=== PATIENT | male | born 1950 ===

== ENCOUNTER 2023-05-07 10:30 | Inpatient (IN) | payer OTHER ==
[2023-05-14] MEDS ORDERED: NORVASC10 MG (11:12)
[2023-05-14] MEDS ORDERED: ZESTRIL10 M1 (11:12)
[2023-05-14] MEDS ORDERED: NEURONTIN300 MG (11:13)
[2023-05-14] MEDS ORDERED: PEPCID 40MG (11:13)
[2023-05-14] MEDS ORDERED: LIPITOR (11:14)
[2023-05-14] MEDS ORDERED: HYDROCHLOROTHIAZIDE 10 MG (11:14)
[2023-05-14] MEDS ORDERED: SILDENAFIL CITR50 MG (11:15)
[2023-05-14] MEDS ORDERED: ALLERGY RELIE15.8 ML (11:15)
[2023-05-14] MEDS ORDERED: BIOTIN1000 MCG PO (11:15)
[2023-05-14] MEDS ORDERED: AZELASTINE137 MCG/0. (11:16)
[2023-05-14 14:21] LABS: INR 0.97; PARTIAL THROMBOPLASTIN TIME 28.4 SECONDS (22.0-34.0); PROTHROMBIN TIME 10.2 SECONDS (9.0-11.5)
[2023-05-22] MEDS ORDERED: ENOXAPARIN SODIUM 40 MG/0.4 ML SYRINGE SUBCUTANEO ONE ×2 (11:09→14:45)
[2023-05-22] MEDS ORDERED: CEFAZOLIN SODIUM 1,000 MG VIAL ONE (11:09)
[2023-05-22] MEDS ORDERED: CEFAZOLIN SODIUM 1,000 MG in 0.9 % SODIUM CHLORIDE 50 ML IV ONE (14:45)
[2023-05-22] MEDS ORDERED: SURGIFLO APPLICATOR 1 EACH APPL TOP ONE (17:29)
[2023-05-22] MEDS ORDERED: HEMOSTATIC MATRIX 1 KIT KIT TOP ONE ×2 (17:29→17:45)
[2023-05-22] MEDS ORDERED: SUGAMMADEX SODIUM 200 MG/2 ML VIAL IV ONE ×2 (21:06→21:15)
[2023-05-22] MEDS ORDERED: ONDANSETRON HCL 2 MG/ML VIAL IV PRN (21:30)
[2023-05-22] MEDS ORDERED: OxyCODONE HCL/APAP UD (PERCOCET) PO PRN (21:30)
[2023-05-22] MEDS ORDERED: RINGERS SOLUTION,LACTATED 1,000 ML IV SCH (21:30)
[2023-05-23] MEDS ORDERED: KETOROLAC TROMETHAMINE 30 MG VIAL IM SCH
[2023-05-23] MEDS ORDERED: GABAPENTIN 300 MG CAPSULE PO SCH (01:00)
[2023-05-23 07:22] LABS: HEMATOCRIT 37.5 % (39.0-48.0); HEMOGLOBIN 12.4 g/dL (13-16.00); MEAN CELL VOLUME 84.5 fL (80.0-100.00); MEAN CORPUSCULAR HEMOGLOBIN 27.9 pg (27.00-32.0); MEAN CORPUSCULAR HGB CONC 33.1 g/dl (32.0-36.0); PLATELET COUNT 210 K/uL (150-450); RED BLOOD COUNT 4.44 M/uL (4.00-6.00); RED CELL DISTRIBUTION WIDTH 14.1 % (11.5-14.5)
[2023-05-23 07:57] LABS: ALBUMIN 3.2 gm/dL (3.4-5.0); CALCIUM 8.2 mg/dL (8.5-10.1); CREATININE SERUM 1.11 mg/dL (0.70-1.30); GFR 65.12; PHOSPHOROUS 3.8 mg/dL (2.5-4.9); POTASSIUM 4.12 mEq/L (3.5-5.1)
[2023-05-23] MEDS ORDERED: FAMOTIDINE/PF 20 MG/2 ML VIAL IV SCH (09:00)
[2023-05-23] MEDS ORDERED: AMLODIPINE BESYLATE 5 MG TABLET PO SCH (09:00)
[2023-05-23] MEDS ORDERED: CEFAZOLIN SODIUM 1,000 MG VIAL IV SCH (09:00)
[2023-05-23] MEDS ORDERED: HYDROCHLOROTHIAZIDE 12.5 MG CAPSULE PO SCH (09:00)
[2023-05-23] MEDS ORDERED: ENOXAPARIN SODIUM 40 MG/0.4 ML SYRINGE SUBCUTANEO SCH (17:00)
== END 2023-05-23 15:02 | disposition home or self-care (01) | DRG 708 ==
LOC: ADM 10:30 → SURH 05-22 07:00 → O/R 05-22 07:28 → EDSTATUS 05-22 10:30 → CIR.AMB 05-22 10:30 → SURH 05-22 10:30
PROVIDERS: ADMIT Urology; ATTEND Urology
PROC: 8E0W4CZ Robotic Assisted Procedure of Trunk Region, Percutaneous Endoscopic Approach (ICD-10-PCS; 2023-05-22)
PROC: 0VT04ZZ Resection of Prostate, Percutaneous Endoscopic Approach (ICD-10-PCS; principal; 2023-05-22 07:00)
DX: C61 Malignant neoplasm of prostate (principal); Z20.822 Contact with and (suspected) exposure to COVID-19